=== PATIENT | male | born 1960 | race Caucasian/White ===

== ENCOUNTER 2020-08-27 20:56 | Emergency (ER) | payer OTHER ==
[2020-08-27 21:01] VITALS: BMI 24.8
[2020-08-27 22:26] LABS: BASO % 0.7 % (0-2.0); EOS % 1.7 % (0-4.5); HEMATOCRIT 42.9 % (35.4-49); HEMOGLOBIN 14.3 GM/dL (11.7-16.9); LYMPH % 29.3 % (8-40); MCH 30.4 pg (25.7-33.7); MCHC 33.4 g/dl (32.0-35.9); MEAN CELL VOLUME 91.1 fl (80-96); MEAN PLT VOLUME 8.4 fl (7.5-11.1); MONO % 9.5 % (3.8-10.2); NEUT % 58.8 % (42.8-82.8); PH,URINE 8.5 (5.0-8.0); PLATELET COUNT 243 K/MM3 (134-434); RBC 4.71 M/mm3 (4.00-5.60); RDW 13.6 % (11.9-15.9); URINE APPEARANCE CLEAR; URINE BILIRUBIN NEGATIVE (NEGATIVE); URINE COLOR YELLOW; URINE GLUCOSE (UA) NEGATIVE (NEGATIVE); URINE KETONE NEGATIVE (NEGATIVE); URINE LEUK ESTERASE NEGATIVE (NEGATIVE); URINE NITRITE NEGATIVE (NEGATIVE); URINE PROTEIN NEGATIVE (NEGATIVE); URINE UROBILINOGEN 0.2 mg/dL (0.2-1.0); WHITE BLOOD COUNT 6.1 K/mm3 (4.0-10.0)
[2020-08-27 22:34] LABS: INR 0.96 (0.83-1.09); PROTHROMBIN TIME (PATIENT) 11.8 SEC (9.7-13.0); URINE BENZODIAZEPINES NEGATIVE ng/ml (CUTOFF=200)
[2020-08-27 22:35] LABS: COCAINE, UR NEGATIVE ng/ml (CUTOFF=300); OPIATES, URI NEGATIVE ng/ml (CUTOFF=300); PHENCYCLIDINE,URINE NEGATIVE ng/ml (CUTOFF=25)
[2020-08-27 22:36] LABS: ACTIVATED PTT 30.7 SECONDS (25.2-36.5)
[2020-08-27 22:37] LABS: METHADONE, UR NEGATIVE ng/ml (CUTOFF=300); URINE BARBITURATES NEGATIVE ng/ml (CUTOFF=200)
[2020-08-27 22:53] LABS: POTASSIUM 4.2 mmol/L (3.5-5.1)
[2020-08-27 22:55] LABS: CALCIUM 9.1 mg/dL (8.5-10.1)
[2020-08-27 22:56] LABS: ALBUMIN 3.5 g/dl (3.4-5.0); BLOOD UREA NITROGEN 22.1 mg/dL (7-18)
[2020-08-27 22:59] LABS: CREATININE 1.1 mg/dL (0.55-1.3)
[2020-08-27 23:01] LABS: BILIRUBIN,TOTAL 0.2 mg/dL (0.2-1); TOT PROT 6.5 g/dl (6.4-8.2)
[2020-08-27 23:11] LABS: URINE AMPHETAMINES POSITIVE ng/ml (CUTOFF=500)
[2020-08-28] MEDS ORDERED: diphenhydrAMINE HCL 50 MG CAPSULE PO ONE (02:06)
[2020-08-28] MEDS ORDERED: diphenhydrAMINE HCL 25 MG CAPSULE (FP) PO ONE (02:07)
[2020-08-28 07:25] VITALS: TEMP 98.1
[2020-08-28 13:37] VITALS: BP 169/80; PULSE 64
== END 2020-08-28 14:15 | disposition home or self-care (01) ==
LOC: JER 20:56
DX: R45.851 Suicidal ideations (principal)
CPT/HCPCS: 36415; 80053; 80307; 81003; 85025; 85610; 85730; 87086; 93005; 93010; 99284-25; C9803; U0003